=== PATIENT | female | born 1960 | race African-American/Black ===

== ENCOUNTER 2018-09-22 05:27 | Inpatient (IN) | payer OTHER, MEDICAID ==
[2018-09-22] VITALS (51 sets, daily range): BP systolic 91–162; BP diastolic 28–113
[~2018-09-22] VITALS: Ht 168.9 cm; Wt 97.5 kg
[~2018-09-22 05:27] MED LIST: APIX5TAB PO; FERR325T6 PO; FURO-152 PO; HYDR-4009 PO; LEVO75TA PO; SUMA100T16 PO
[2018-09-22] MEDS ORDERED: GELATIN SPONGE,ABSORBABLE 12-7MM SPONGE ONE ×2 (06:23→06:49)
[2018-09-22] MEDS ORDERED: THROMBIN (BOVINE) 5000 UNITS/VIAL TOP ONE ×4 (06:23→10:42)
[2018-09-22] MEDS ORDERED: BACITRACIN 50,000 UNITS/VIAL ONE (06:24)
[2018-09-22] MEDS ORDERED: LIDOCAINE HCL/EPINEPHRINE 1%-EPI 1:100,000 20 ML VIAL ONE (06:24)
[2018-09-22] MEDS ORDERED: LACTATED RINGERS 1,000 ML IV SCH (06:40)
[2018-09-22 06:47] LABS: BASOPHILS % 0.8 % (0.0-2.0); EOSINOPHILS % 4.2 % (0.0-5.0); HEMATOCRIT. 29.4 % (36.0-48.0); HEMOGLOBIN. 9.4 g/dL (12.0-16.0); LYMPHOCYTES % 26.4 % (20.0-50.0); MEAN CORPUSCULAR HEMOGLOBIN 28.1 pg (28.0-32.0); MEAN PLATELET VOLUME 8.1 fl (7.4-10.4); MONOCYTES % 10.5 % (2.0-8.0); NEUTROPHILS % 58.1 % (40.0-76.0); PLATELET 278 x1000/uL (130-400); RED BLOOD CELL COUNT 3.34 mill/uL (4.2-5.4); RED CELL DISTRIBUTION WIDTH 18.9 % (11.6-14.6)
[2018-09-22] MEDS ORDERED: ROCURONIUM BROMIDE 10MG/ML VIAL 5ML IV ONE ×2 (06:49→08:43)
[2018-09-22] MEDS ORDERED: HYDROMORPHONE HCL/PF 2MG/ML (OR) ONE (06:49)
[2018-09-22] MEDS ORDERED: FENTANYL CITRATE/PF 50MCG/ML 5ML VIAL ONE (06:49)
[2018-09-22 06:50] LABS: CHLORIDE 108 mEq/L (98-107)
[2018-09-22] MEDS ORDERED: MIDAZOLAM HCL 2 MG/2 ML VIAL ONE (06:50)
[2018-09-22] MEDS ORDERED: PROPOFOL 200MG/20ML VIAL IV ONE (06:50)
[2018-09-22] MEDS ORDERED: ACETAMINOPHEN 325MG TABLET PO PRN (11:15)
[2018-09-22] MEDS ORDERED: ONDANSETRON HCL 4MG/2ML INJ IV PRN (11:15)
[2018-09-22] MEDS ORDERED: NEOSTIGMINE METHYLSULFATE 1MG/ML 10 ML VIAL ONE (11:17)
[2018-09-22] MEDS ORDERED: GLYCOPYRROLATE 0.2 MG/ML 2ML VIAL ONE (11:18)
[2018-09-22] MEDS ORDERED: DEXTROSE 50% WATER 50ML SYRINGE IV PRN (11:30)
[2018-09-22] MEDS: INSULIN LISPRO 100 UNITS/ML SUBCUT SCH ×3 (12:00→20:49)
[2018-09-22] MEDS ORDERED: NICARDIPINE 100 MG in SODIUM CHLORIDE 0.9% 60 ML IV PRN (12:00)
[2018-09-22] MEDS ORDERED: ONDANSETRON INJ IV PRN (12:00)
[2018-09-22] MEDS ORDERED: NALOXONE INJ IV PRN (12:00)
[2018-09-22] MEDS ORDERED: DIPHENHYDRAMINE INJ IV PRN (12:00)
[2018-09-22] MEDS: DEXT 5%/LACTATED RINGERS 1,000 ML IV SCH ×2 (12:13→18:44)
[2018-09-22] MEDS: BLOOD SUGAR DIAGNOSTIC STRIP TEST SCH ×3 (12:13→21:00)
[2018-09-22] MEDS: HYDROMORPHONE PCA 10MG/50ML IV PRN (12:44)
[2018-09-22] MEDS: CLINDAMYCIN 600 MG in DEXTROSE 5% WATER 50 ML IV SCH ×2 (13:56→23:02)
[2018-09-22] MEDS ORDERED: CEFAZOLIN SODIUM 1000MG/VIAL IV SCH (14:00)
[2018-09-22] MEDS ORDERED: FERROUS SULFATE 325MG TABLET PO SCH (17:00)
[2018-09-22] MEDS: HYDROCODONE/APAP 7.5/325MG 1 TAB TABLET PO PRN (20:50)
[2018-09-23] VITALS (98 sets, daily range): BP systolic 29–132; BP diastolic 16–105
[2018-09-23] MEDS: DEXT 5%/LACTATED RINGERS 1,000 ML IV SCH ×3 (02:19→16:38)
[2018-09-23] MEDS: HYDROCODONE/APAP 7.5/325MG 1 TAB TABLET PO PRN ×3 (02:30→21:06)
[2018-09-23] MEDS: CLINDAMYCIN 600 MG in DEXTROSE 5% WATER 50 ML IV SCH (06:09)
[2018-09-23] MEDS: INSULIN LISPRO 100 UNITS/ML SUBCUT SCH ×4 (06:10→21:08)
[2018-09-23] MEDS: BLOOD SUGAR DIAGNOSTIC STRIP TEST SCH ×4 (06:10→21:07)
[2018-09-23 06:34] LABS: BASOPHILS % 0.2 % (0.0-2.0); EOSINOPHILS % 0.2 % (0.0-5.0); HEMATOCRIT. 21.9 % (36.0-48.0); HEMOGLOBIN. 7.1 g/dL (12.0-16.0); LYMPHOCYTES % 8.9 % (20.0-50.0); MEAN CORPUSCULAR HEMOGLOBIN 28.3 pg (28.0-32.0); MEAN CORPUSCULAR VOLUME 87.1 fL (81.0-99.0); MEAN PLATELET VOLUME 8.5 fl (7.4-10.4); MONOCYTES % 14.4 % (2.0-8.0); NEUTROPHILS % 76.3 % (40.0-76.0); PLATELET 210 x1000/uL (130-400); RED BLOOD CELL COUNT 2.51 mill/uL (4.2-5.4); RED CELL DISTRIBUTION WIDTH 18.5 % (11.6-14.6)
[2018-09-23 07:08] LABS: CHLORIDE 107 mEq/L (98-107)
[2018-09-23] MEDS: DOCUSATE SODIUM 100MG CAPSULE PO SCH ×2 (09:00→17:00)
[2018-09-23] MEDS: FUROSEMIDE 20MG TABLET PO SCH (09:03)
[2018-09-23] MEDS: LEVOTHYROXINE SODIUM 75MCG TABLET PO SCH (09:03)
[2018-09-23 11:16] LABS: INR 1.2; PROTHROMBIN TIME 11.6 sec (9.1-11.1)
[2018-09-23] MEDS: IPRATROPIUM/ALBUTEROL 0.5-3(2.5)MG/3ML NEB HHN SCH ×2 (13:20→19:46)
[2018-09-23] MEDS: HYDROMORPHONE PCA 10MG/50ML IV PRN (15:36)
[2018-09-24] VITALS (89 sets, daily range): BP systolic 68–177; BP diastolic 25–95
[2018-09-24] MEDS: DEXT 5%/LACTATED RINGERS 1,000 ML IV SCH ×3 (00:07→16:26)
[2018-09-24] MEDS: IPRATROPIUM/ALBUTEROL 0.5-3(2.5)MG/3ML NEB HHN SCH ×3 (02:45→20:02)
[2018-09-24 06:14] LABS: HEMATOCRIT 23.5 % (36.0-48.0); HEMOGLOBIN 7.4 g/dL (12.0-16.0)
[2018-09-24] MEDS: BLOOD SUGAR DIAGNOSTIC STRIP TEST SCH ×4 (06:22→21:00)
[2018-09-24] MEDS: INSULIN LISPRO 100 UNITS/ML SUBCUT SCH ×4 (06:23→21:00)
[2018-09-24] MEDS ORDERED: SODIUM CHLORIDE 0.9% 500 ML IV NR (09:45)
[2018-09-24] MEDS: DOCUSATE SODIUM 100MG CAPSULE PO SCH ×2 (10:14→18:49)
[2018-09-24] MEDS: LEVOTHYROXINE SODIUM 75MCG TABLET PO SCH (10:14)
[2018-09-24] MEDS: FUROSEMIDE 20MG TABLET PO SCH (10:14)
[2018-09-24] MEDS: HYDROCODONE/APAP 7.5/325MG 1 TAB TABLET PO PRN ×2 (11:06→22:49)
[2018-09-24] MEDS: POLYETHYLENE GLYCOL 3350 (17GM) 1 DOSE PACK PO SCH (11:11)
[2018-09-24] MEDS ORDERED: BISACODYL 5MG TABLET PO PRN (13:15)
[2018-09-24] MEDS: HYDROMORPHONE PCA 10MG/50ML IV PRN (14:28)
[2018-09-25] VITALS (57 sets, daily range): BP systolic 78–147; BP diastolic 41–98
[2018-09-25] MEDS: IPRATROPIUM/ALBUTEROL 0.5-3(2.5)MG/3ML NEB HHN SCH ×4 (01:57→20:17)
[2018-09-25 06:40] LABS: BASOPHILS % 0.3 % (0.0-2.0); EOSINOPHILS % 2.1 % (0.0-5.0); HEMATOCRIT. 26.3 % (36.0-48.0); HEMOGLOBIN. 8.5 g/dL (12.0-16.0); LYMPHOCYTES % 13.3 % (20.0-50.0); MEAN CORPUSCULAR HEMOGLOBIN 28.8 pg (28.0-32.0); MEAN CORPUSCULAR VOLUME 88.8 fL (81.0-99.0); MEAN PLATELET VOLUME 8.6 fl (7.4-10.4); MONOCYTES % 12.8 % (2.0-8.0); NEUTROPHILS % 71.5 % (40.0-76.0); PLATELET 183 x1000/uL (130-400); RED BLOOD CELL COUNT 2.96 mill/uL (4.2-5.4); RED CELL DISTRIBUTION WIDTH 17.7 % (11.6-14.6)
[2018-09-25 06:44] LABS: CHLORIDE 108 mEq/L (98-107)
[2018-09-25] MEDS: BLOOD SUGAR DIAGNOSTIC STRIP TEST SCH ×5 (06:50→21:10)
[2018-09-25] MEDS: INSULIN LISPRO 100 UNITS/ML SUBCUT SCH ×4 (06:50→21:14)
[2018-09-25] MEDS: POLYETHYLENE GLYCOL 3350 (17GM) 1 DOSE PACK PO SCH (09:26)
[2018-09-25] MEDS: LEVOTHYROXINE SODIUM 75MCG TABLET PO SCH (09:26)
[2018-09-25] MEDS: FUROSEMIDE 20MG TABLET PO SCH (09:26)
[2018-09-25] MEDS: DOCUSATE SODIUM 100MG CAPSULE PO SCH ×2 (09:26→18:02)
[2018-09-25] MEDS: HYDROCODONE/APAP 7.5/325MG 1 TAB TABLET PO PRN (09:27)
[2018-09-25] MEDS: DEXT 5%/LACTATED RINGERS 1,000 ML IV SCH ×4 (11:45→20:00)
[2018-09-25] MEDS: HYDROMORPHONE HCL/PF 2MG/ML CPJ IV PRN ×2 (18:02→22:11)
[2018-09-26] VITALS: BP 127/71
[2018-09-26] MEDS: DEXT 5%/LACTATED RINGERS 1,000 ML IV SCH ×4 (00:32→16:00)
[2018-09-26] MEDS: IPRATROPIUM/ALBUTEROL 0.5-3(2.5)MG/3ML NEB HHN SCH ×4 (01:17→18:00)
[2018-09-26] MEDS: HYDROMORPHONE HCL/PF 2MG/ML CPJ IV PRN (01:43)
[2018-09-26 04:00] VITALS: BP 125/88
[2018-09-26] MEDS: HYDROCODONE/APAP 7.5/325MG 1 TAB TABLET PO PRN ×4 (04:45→22:39)
[2018-09-26] MEDS: BLOOD SUGAR DIAGNOSTIC STRIP TEST SCH ×4 (06:26→21:01)
[2018-09-26] MEDS: INSULIN LISPRO 100 UNITS/ML SUBCUT SCH ×5 (06:26→21:14)
[2018-09-26 07:22] LABS: BASOPHILS % 0.6 % (0.0-2.0); EOSINOPHILS % 4.1 % (0.0-5.0); HEMATOCRIT. 24.2 % (36.0-48.0); HEMOGLOBIN. 8.1 g/dL (12.0-16.0); MEAN CORPUSCULAR HEMOGLOBIN 29.6 pg (28.0-32.0); MEAN CORPUSCULAR VOLUME 88.9 fL (81.0-99.0); MEAN PLATELET VOLUME 8.6 fl (7.4-10.4); MONOCYTES % 13.6 % (2.0-8.0); NEUTROPHILS % 65.7 % (40.0-76.0); PLATELET 184 x1000/uL (130-400); RED BLOOD CELL COUNT 2.72 mill/uL (4.2-5.4); RED CELL DISTRIBUTION WIDTH 17.6 % (11.6-14.6)
[2018-09-26 07:30] VITALS: BP 122/85
[2018-09-26 07:35] LABS: CHLORIDE 108 mEq/L (98-107)
[2018-09-26] MEDS: FUROSEMIDE 20MG TABLET PO SCH (10:17)
[2018-09-26] MEDS: POLYETHYLENE GLYCOL 3350 (17GM) 1 DOSE PACK PO SCH (10:17)
[2018-09-26] MEDS: DOCUSATE SODIUM 100MG CAPSULE PO SCH ×2 (10:17→16:20)
[2018-09-26] MEDS: LEVOTHYROXINE SODIUM 75MCG TABLET PO SCH (10:17)
[2018-09-26 12:00] VITALS: BP 102/79
[2018-09-26] MEDS ORDERED: LACTULOSE 20G/30ML UDC PO NR (13:15)
[2018-09-26 16:05] VITALS: BP 115/71
[2018-09-26 20:00] VITALS: BP 141/74
[2018-09-27] VITALS: BP 123/73
[2018-09-27] MEDS: HYDROMORPHONE HCL/PF 2MG/ML CPJ IV PRN ×4 (01:05→17:50)
[2018-09-27] MEDS: IPRATROPIUM/ALBUTEROL 0.5-3(2.5)MG/3ML NEB HHN SCH ×3 (01:48→14:46)
[2018-09-27] MEDS: HYDROCODONE/APAP 7.5/325MG 1 TAB TABLET PO PRN (03:11)
[2018-09-27] MEDS: DEXT 5%/LACTATED RINGERS 1,000 ML IV SCH (03:13)
[2018-09-27 04:00] VITALS: BP 129/109
[2018-09-27] MEDS: INSULIN LISPRO 100 UNITS/ML SUBCUT SCH ×2 (06:10→12:40)
[2018-09-27] MEDS: BLOOD SUGAR DIAGNOSTIC STRIP TEST SCH ×3 (06:10→17:10)
[2018-09-27 08:00] VITALS: BP_SYST 121; BP_SYST 129; BP_DIAS 77
[2018-09-27] MEDS: DOCUSATE SODIUM 100MG CAPSULE PO SCH (09:58)
[2018-09-27] MEDS: LEVOTHYROXINE SODIUM 75MCG TABLET PO SCH (09:58)
[2018-09-27] MEDS: POLYETHYLENE GLYCOL 3350 (17GM) 1 DOSE PACK PO SCH (09:58)
[2018-09-27] MEDS: FUROSEMIDE 20MG TABLET PO SCH (09:58)
[2018-09-27] MEDS ORDERED: LACTULOSE 20G/30ML UDC PO NR (11:30)
[2018-09-27 12:00] VITALS: BP 118/71
[2018-09-27] MEDS ORDERED: BISACODYL 10MG SUPP PR SCH (13:00)
[2018-09-27] MEDS ORDERED: BISACODYL 10MG SUPP PR PRN (13:00)
[2018-09-27] MEDS: LACTULOSE 20G/30ML UDC PO SCH ×2 (13:00→15:33)
[2018-09-27] MEDS ORDERED: DOCU-138 PO (13:43)
[2018-09-27] MEDS ORDERED: LACTULOSE 20G/30ML UDC PO ONE (13:45)
[2018-09-27 16:00] VITALS: BP 131/95
[2018-09-27] MEDS ORDERED: DOCUSATE SODIUM 100MG CAPSULE PO SCH (17:00)
[2018-09-27 19:10] VITALS: BP 131/95
[2018-09-27] MEDS ORDERED: POLYETHYLENE GLYCOL 3350 (17GM) 1 DOSE PACK PO SCH (21:00)
== END 2018-09-27 19:40 | disposition home health service (06) | DRG 459 ==
LOC: OR 05:27 → MICUSO 05:28 → 8WST 09-25 16:59
PROVIDERS: ADMIT Internal Medicine; ATTEND Neurological Surgery
PROC: 00NY0ZZ Release Lumbar Spinal Cord, Open Approach (ICD-10-PCS; principal; 2018-09-22)
PROC: 0SG1071 Fusion of 2 or more Lumbar Vertebral Joints with Autologous Tissue Substitute, Posterior Approach, Posterior Column, Open Approach (ICD-10-PCS; 2018-09-22)
PROC: 4A11X4G Monitoring of Peripheral Nervous Electrical Activity, Intraoperative, External Approach (ICD-10-PCS; 2018-09-22)
PROC: 30233N1 Transfusion of Nonautologous Red Blood Cells into Peripheral Vein, Percutaneous Approach (ICD-10-PCS; 2018-09-23)
DX: M48.061 Spinal stenosis, lumbar region without neurogenic claudication (principal); G82.50 Quadriplegia, unspecified; K59.2 Neurogenic bowel, not elsewhere classified; M47.16 Other spondylosis with myelopathy, lumbar region; I10 Essential (primary) hypertension; D64.9 Anemia, unspecified; E87.8 Other disorders of electrolyte and fluid balance, not elsewhere classified; E03.9 Hypothyroidism, unspecified; E11.65 Type 2 diabetes mellitus with hyperglycemia; E78.5 Hyperlipidemia, unspecified; G89.4 Chronic pain syndrome; G43.909 Migraine, unspecified, not intractable, without status migrainosus; M43.16 Spondylolisthesis, lumbar region; K59.00 Constipation, unspecified; M43.17 Spondylolisthesis, lumbosacral region; M48.07 Spinal stenosis, lumbosacral region; N31.9 Neuromuscular dysfunction of bladder, unspecified; M47.27 Other spondylosis with radiculopathy, lumbosacral region; Z60.2 Problems related to living alone; E66.9 Obesity, unspecified; Z88.0 Allergy status to penicillin; Z88.9 Allergy status to unspecified drugs, medicaments and biological substances; Z71.3 Dietary counseling and surveillance; Z79.890 Hormone replacement therapy; Z86.711 Personal history of pulmonary embolism; Z86.718 Personal history of other venous thrombosis and embolism; Z79.01 Long term (current) use of anticoagulants; Z68.34 Body mass index [BMI] 34.0-34.9, adult
CPT/HCPCS: 36415; 71045; 72100; 80048; 82962; 83036; 85014; 85018; 86850; 86900; 86920; 88304; 88311; 93005; 93970; 94640; 95863; 95925; 95926; 97116; 97163; 97166; 97530; 97760; A6261; J1170; J1200; J1815; J2250; J2704; J2710; J3010; J3490; J7040; J7050; J7060; J7121; J7620; P9016